=== PATIENT | male | born 1995 | race Two or more races ===

== ENCOUNTER → 2023-06-22 | Outpatient (CLI) | payer OTHER | LOC: M PLAIMG 08:08 | DX: M25.572 Pain in left ankle and joints of left foot (principal); M25.472 Effusion, left ankle ==

== ENCOUNTER 2023-08-20 17:00 | Inpatient (IN) | payer OTHER ==
[~2023-08-20] VITALS: Ht 188 cm; Wt 89.0 kg
[2023-08-20] MEDS ORDERED: GABA600T4 PO (17:14)
[2023-08-20] MEDS ORDERED: IBUP200C28 PO (17:14)
[2023-08-20 21:28] LABS: HEMATOCRIT 46.2 % (42.0-52.0); HEMOGLOBIN 16.4 g/dl (13.5-17.5); MEAN CORPUSCULAR HEMOGLOBIN 31.7 pg (27.0-33.0); MEAN CORPUSCULAR HGB CONC 35.5 g/dl (32.0-36.5); MEAN CORPUSCULAR VOLUME 89.4 fl (80.0-96.0); PLATELET COUNT, AUTOMATED 194 10^3/uL (150-450); RED BLOOD COUNT 5.17 10^6/uL (4.30-6.10); WHITE BLOOD COUNT 10.5 10^3/uL (4.0-10.0)
[2023-08-20 21:34] LABS: AMPHETAMINES LEVEL URINE NEGATIVE (NEGATIVE); BARBITURATES URINE NEGATIVE (NEGATIVE); BENZODIAZEPINES URINE NEGATIVE (NEGATIVE); CANNABINOIDS URINE NEGATIVE (NEGATIVE); COCAINE METABOLITE URINE NEGATIVE (NEGATIVE); METHADONE URINE NEGATIVE (NEGATIVE); OPIATES URINE NEGATIVE (NEGATIVE); PHENCYCLIDINE URINE NEGATIVE (NEGATIVE)
[2023-08-20 21:49] LABS: ETHYL ALCOHOL (ETHANOL) < 0.003 % (0.000-0.010)
[2023-08-20 21:51] LABS: ALBUMIN 4.2 G/DL (3.2-5.2); ALKALINE PHOSPHATASE 84 U/L (46-116); ALT/SGPT 24 U/L (7.0-40); AST/SGOT 23 U/L (<34); BILIRUBIN,DIRECT 0.3 MG/DL (<0.4); BILIRUBIN,TOTAL 0.8 MG/DL (0.3-1.2); BLOOD UREA NITROGEN 16 MG/DL (9-23); CALCIUM LEVEL 8.7 MG/DL (8.5-10.1); CARBON DIOXIDE LEVEL 24 MMOL/L (20-31); CHLORIDE LEVEL 108 MMOL/L (98-107); CREATININE FOR GFR 0.93 MG/DL (0.70-1.30); GLOMERULAR FILTRATION RATE > 60.0 (>60); GLUCOSE, FASTING 90 MG/DL (60-100); POTASSIUM SERUM 3.9 MMOL/L (3.5-5.1); SALICYLATE LEVEL < 3.0 MG/DL (<30); SODIUM LEVEL 142 MMOL/L (136-145); TOTAL PROTEIN 7.1 G/DL (5.7-8.2)
[2023-08-20 21:53] LABS: THYROID STIMULATING HORMONE 2.425 uIU/ML (0.55-4.78)
[2023-08-20] MEDS ORDERED: HOME MED LIST COMPLETE! XX SCH (22:25)
[2023-08-20] MEDS ORDERED: IBUPROFEN 400MG TAB PO PRN (22:35)
[2023-08-20] MEDS ORDERED: diphenhydrAMINE 25MG CAP PO PRN (22:35)
[2023-08-20] MEDS ORDERED: MOM 30ML SUSPENSION UDC PO PRN (22:35)
[2023-08-20] MEDS ORDERED: traZODone 50 MG TAB PO PRN (22:35)
[2023-08-20] MEDS ORDERED: MAALOX 30 ML SUSP *UDC PO PRN (22:35)
[2023-08-20] MEDS ORDERED: ACETAMINOPHEN TAB 650MG DOSE (2X325MG) PO PRN (22:35)
[2023-08-20] MEDS ORDERED: LORazepam 2 MG TAB PO PRN (22:35)
[2023-08-20 23:27] VITALS: BP 123/55; TEMP 97.5; O2SAT 96
[2023-08-20 23:43] VITALS: BP 123/55
[2023-08-20] MEDS: GABAPENTIN 300 MG CAP PO SCH (23:57)
[2023-08-20] MEDS: THIAMINE 100 MG TAB PO SCH (23:57)
[2023-08-21 06:24] VITALS: BP 148/64; TEMP 98.3; O2SAT 100
[2023-08-21] MEDS: GABAPENTIN 300 MG CAP PO SCH ×3 (09:59→20:13)
[2023-08-21] MEDS: MULTIVITAMINS/MINERALS THERAP 1 TAB PO SCH (09:59)
[2023-08-21] MEDS: THIAMINE 100 MG TAB PO SCH ×2 (09:59→20:13)
[2023-08-21] MEDS: FOLIC ACID 1MG TAB PO SCH (09:59)
[2023-08-21 10:03] VITALS: BP 127/74
[2023-08-21 12:30] VITALS: BP 146/78
[2023-08-21] MEDS: PROPRANOLOL 10 MG TAB PO SCH ×2 (12:31→20:13)
[2023-08-21 14:00] VITALS: BP 143/72; TEMP 98.1
[2023-08-21 20:11] VITALS: BP 144/81
[2023-08-21 20:15] VITALS: BP 144/81
[2023-08-21] MEDS: NICOTINE 21MG/24HR 1 EA TRANSDERMAL TD PRN (21:19)
[2023-08-22 06:47] VITALS: BP 160/70; TEMP 98; O2SAT 97
[2023-08-22 08:26] VITALS: BP 138/71
[2023-08-22] MEDS: PROPRANOLOL 10 MG TAB PO SCH ×2 (08:29→20:05)
[2023-08-22] MEDS: THIAMINE 100 MG TAB PO SCH ×2 (08:29→20:03)
[2023-08-22] MEDS: GABAPENTIN 300 MG CAP PO SCH ×3 (08:29→20:03)
[2023-08-22] MEDS: FOLIC ACID 1MG TAB PO SCH (08:29)
[2023-08-22] MEDS: MULTIVITAMINS/MINERALS THERAP 1 TAB PO SCH (08:29)
[2023-08-22 13:13] VITALS: BP 138/71; TEMP 98.2; O2SAT 100
[2023-08-22 13:48] VITALS: BP 138/66
[2023-08-22 16:28] VITALS: BP 135/71; TEMP 98.7; O2SAT 100
[2023-08-22 20:05] VITALS: BP 138/87
[2023-08-22] MEDS: NICOTINE 21MG/24HR 1 EA TRANSDERMAL TD PRN (20:06)
[2023-08-23 06:00] VITALS: BP 116/56
[2023-08-23 06:36] VITALS: BP 116/56; TEMP 98.1; O2SAT 100
[2023-08-23] MEDS: FOLIC ACID 1MG TAB PO SCH (09:23)
[2023-08-23] MEDS: THIAMINE 100 MG TAB PO SCH (09:23)
[2023-08-23] MEDS: MULTIVITAMINS/MINERALS THERAP 1 TAB PO SCH (09:23)
[2023-08-23] MEDS: GABAPENTIN 300 MG CAP PO SCH (09:24)
[2023-08-23 09:25] VITALS: BP 138/77
[2023-08-23] MEDS: PROPRANOLOL 10 MG TAB PO SCH (09:25)
[2023-08-23] MEDS ORDERED: NICO21PAT TD (09:33)
[2023-08-23] MEDS ORDERED: PROP10TA56 PO (09:33)
[2023-08-23] MEDS ORDERED: TRAZ-252 PO (09:33)
== END 2023-08-23 10:11 | disposition home or self-care (01) | DRG 882 ==
LOC: M ED 17:00 → M ED INP 22:32 → M PSY 23:05
PROVIDERS: ADMIT Student in an Organized Health Care Education/Training Program; ATTEND Student in an Organized Health Care Education/Training Program
DX: F43.9 Reaction to severe stress, unspecified (principal); F60.89 Other specific personality disorders; Z63.0 Problems in relationship with spouse or partner; Z63.8 Other specified problems related to primary support group; F17.290 Nicotine dependence, other tobacco product, uncomplicated; Z79.899 Other long term (current) drug therapy

== ENCOUNTER 2024-04-20 23:52 | Emergency (ER) | payer OTHER ==
[~2024-04-20] VITALS: Ht 188 cm; Wt 100.0 kg
[~2024-04-20 23:52] MED LIST: GABA600T4 PO; IBUP200C28 PO; NICO21PAT TD; PROP10TA56 PO; TRAZ-252 PO
[2024-04-21] MEDS ORDERED: EPINEPHrine INJ 1 MG/ML 1ML AMP IM STA (00:08)
[2024-04-21 00:14] VITALS: TEMP 97.3
[2024-04-21] MEDS: methylPREDNISolone 125MG 2ML VIAL IV ONE (00:17)
[2024-04-21] MEDS: NS 1,000 ML IV ONE (00:18)
[2024-04-21] MEDS: ALBUTEROL SULFATE 2.5MG/0.5ML INH NEB SOLN NEB SCH (00:24)
[2024-04-21] MEDS: EPINEPHrine INJ 1 MG/ML 1ML AMP IM STA (00:26)
[2024-04-21] MEDS: KETOROLAC 30 MG/ML 1ML VIAL IV ONE (01:16)
[2024-04-21 03:00] VITALS: BP 127/60; O2SAT 96
[2024-04-21] MEDS ORDERED: EPIP0.3I2 IM (03:00)
[2024-04-21] MEDS ORDERED: PEPC1TAB5 PO (03:00)
[2024-04-21] MEDS ORDERED: PRED20TA PO (03:00)
== END 2024-04-21 03:10 | disposition left against medical advice (07) ==
LOC: EDBD 23:52 → M ED 23:52
DX: T63.441A Toxic effect of venom of bees, accidental (unintentional), initial encounter (principal); Z53.9 Procedure and treatment not carried out, unspecified reason; F17.290 Nicotine dependence, other tobacco product, uncomplicated; Z79.899 Other long term (current) drug therapy
CPT/HCPCS: 93041; 94640; 94760; 96361; 96372; 96374; 96375; 99285; J0171; J1885; J2919